=== PATIENT | female | born 1990 | race Caucasian/White ===

== ENCOUNTER 2019-03-08 21:05 | Inpatient (IN) | payer MEDICAID ==
[~2019-03-08] VITALS: Ht 175.3 cm; Wt 76.2 kg
[2019-03-08] MEDS ORDERED: NALBUPHINE 10 MG/ML AMP IVP PRN (22:15)
[2019-03-08] MEDS ORDERED: OXYTOCIN 20 UNITS in LACTATED RINGERS 1,000 ML IV SCH (22:15)
[2019-03-08] MEDS ORDERED: PROMETHAZINE 25 MG/ML VIAL IVP PRN (22:30)
[2019-03-08] MEDS ORDERED: BUPIVACAINE 0.125%/NS PREMIX 250 ML ONE (22:41)
[2019-03-08] MEDS: LACTATED RINGERS 1,000 ML IV SCH (22:44)
[2019-03-08] MEDS ORDERED: BUPIVACAINE 0.125%/NS PREMIX 250 ML EPI SCH (23:05)
[2019-03-08 23:19] LABS: BASOPHILS % (AUTO) 0.2 % (0.0-2.0); EOSINOPHILS % (AUTO) 0.2 % (0.0-4.0); HEMATOCRIT 41.1 % (36-48); HEMOGLOBIN 13.7 g/dL (12.0-16.0); LYMPHOCYTES # (AUTO) 1.5 K/uL (2.5-16.5); LYMPHOCYTES % (AUTO) 13.6 % (20.5-51.1); MEAN CORPUSCULAR HEMOGLOBIN 30 pg (27-31); MEAN CORPUSCULAR HGB CONC 33 g/dL (33-37); MEAN CORPUSCULAR VOLUME 89.1 fL (80-94); MONOCYTES # (AUTO) 0.4 K/uL (0.8-1.0); MONOCYTES % (AUTO) 3.7 % (1.7-9.3); NEUTROPHILS # (AUTO) 9.3 K/uL (1.8-7.7); NEUTROPHILS % (AUTO) 82.3 % (42.2-75.2); PLATELET COUNT (AUTO) 153 K/uL (140-450); RED BLOOD CELL COUNT(AUTO) 4.61 MIL/uL (4.20-5.40); RED CELL DISTRIBUTION WIDTH 13.5 % (11.6-13.7); WHITE BLOOD COUNT (AUTO) 11.3 K/uL (4.8-10.8)
[2019-03-08 23:23] LABS: APPEARANCE,URINE CLEAR (CLEAR); BILIRUBIN,URINE NEGATIVE (NEGATIVE); BLOOD, URINE TRACE-I (NEGATIVE); COLOR,URINE YELLOW (YELLOW); LEUKOCYTE ESTERASE ,URINE NEGATIVE (NEGATIVE); NITRITE, URINE NEGATIVE (NEGATIVE); UGLUCOSE NEGATIVE (NEGATIVE)
[2019-03-08 23:49] LABS: RBC,URINE 0-5 /HPF (0-5)
[2019-03-09] MEDS ORDERED: INFLUENZA VACCINE QUAD 0.5 ML SYR IMVAC PRN (00:15)
[2019-03-09 00:18] VITALS: BP 128/87
[2019-03-09] MEDS: LACTATED RINGERS 1,000 ML IV SCH (07:27)
[2019-03-09] MEDS ORDERED: OXYTOCIN 20 UNITS/LR PREMIX 1,000 ML IV ONE (07:35)
[2019-03-09] MEDS ORDERED: LIDOCAINE 1% 500 MG/50 ML VIAL ONE (12:23)
[2019-03-09] MEDS ORDERED: ROPIVACAINE 0.2%/NS PREMIX 100 ML EPI ONE (13:15)
[2019-03-09] MEDS ORDERED: GENTAMICIN PER PHARMACY MC PRN (13:30)
[2019-03-09] MEDS ORDERED: AMPICILLIN 2,000 MG VIAL ONE (13:52)
[2019-03-09] MEDS ORDERED: AMPICILLIN 2,000 MG in NACL 0.9% 100 ML IV SCH (14:00)
[2019-03-09] MEDS ORDERED: GENTAMICIN IV SCH (14:00)
[2019-03-09] MEDS ORDERED: CLINDAMYCIN 900 MG in DEXTROSE 5% 100 ML IV SCH (14:00)
[2019-03-09] MEDS ORDERED: DEXTROSE 5% IV SCH (14:00)
[2019-03-09] MEDS ORDERED: MEASLES, MUMPS, AND RUBELLA 1 VIAL SQVAC PRN (15:05)
[2019-03-09] MEDS ORDERED: BENZOCAINE/MENTHOL 20%-0.5% 60 GM CAN TP PRN (15:05)
[2019-03-09] MEDS ORDERED: METHYLERGONOVINE 0.2 MG TAB PO PRN (15:05)
[2019-03-09] MEDS ORDERED: METHYLERGONOVINE 0.2 MG/ML AMP IM PRN (15:05)
[2019-03-09] MEDS ORDERED: OXYTOCIN 10 UNITS/ML VIAL IM PRN (15:05)
[2019-03-09] MEDS: IBUPROFEN 800 MG TAB PO PRN ×2 (16:04→21:57)
[2019-03-10] MEDS: IBUPROFEN 800 MG TAB PO PRN (06:28)
[2019-03-10 07:08] LABS: HEMATOCRIT 35.4 % (36-48); HEMOGLOBIN 11.8 g/dL (12.0-16.0)
[2019-03-10] MEDS: oxyCODONE/APAP 5/325 MG 1 TAB TAB PO PRN ×2 (08:29→20:18)
[2019-03-11] MEDS: oxyCODONE/APAP 5/325 MG 1 TAB TAB PO PRN ×2 (10:18→14:34)
[2019-03-11 15:40] LABS: BILIRUBIN,URINE NEGATIVE (NEGATIVE); BLOOD, URINE 3+ (NEGATIVE); COLOR,URINE YELLOW (YELLOW); LEUKOCYTE ESTERASE ,URINE 1+ (NEGATIVE); NITRITE, URINE NEGATIVE (NEGATIVE); UGLUCOSE NEGATIVE (NEGATIVE)
[2019-03-11 15:41] LABS: APPEARANCE,URINE HAZY (CLEAR)
== END 2019-03-11 15:50 | disposition home or self-care (01) | DRG 560 ==
LOC: MLD 21:05 → OBSVTOIN 22:00 → MFCC 03-09 20:00
PROVIDERS: ADMIT Obstetrics & Gynecology; ATTEND Obstetrics & Gynecology
PROC: 10E0XZZ Delivery of Products of Conception, External Approach (ICD-10-PCS; principal; 2019-03-09)
PROC: 0HQ9XZZ Repair Perineum Skin, External Approach (ICD-10-PCS; 2019-03-09)
PROC: 10907ZC Drainage of Amniotic Fluid, Therapeutic from Products of Conception, Via Natural or Artificial Opening (ICD-10-PCS; 2019-03-09)
PROC: 3E0R3BZ Introduction of Anesthetic Agent into Spinal Canal, Percutaneous Approach (ICD-10-PCS; 2019-03-09)
PROC: 00HU33Z Insertion of Infusion Device into Spinal Canal, Percutaneous Approach (ICD-10-PCS; 2019-03-09)
PROC: 0UQMXZZ Repair Vulva, External Approach (ICD-10-PCS; 2019-03-09)
PROC: 3E0234Z Introduction of Serum, Toxoid and Vaccine into Muscle, Percutaneous Approach (ICD-10-PCS; 2019-03-09)
PROC: 3E0134Z Introduction of Serum, Toxoid and Vaccine into Subcutaneous Tissue, Percutaneous Approach (ICD-10-PCS; 2019-03-09)
DX: O41.1230 Chorioamnionitis, third trimester, not applicable or unspecified (principal); D62 Acute posthemorrhagic anemia; O70.0 First degree perineal laceration during delivery; Z23 Encounter for immunization; Z37.0 Single live birth; Z3A.38 38 weeks gestation of pregnancy
CPT/HCPCS: 36415; 51702; 59409; 81001; 85018; 85025; 86592; 86886; 86900; 86901; 87086; 87186; 90715; G0378; J0290; J1580; J2001; J2590; J2795; J3490; J7060; J7120

== ENCOUNTER 2021-05-14 05:52 | Day surgery (SDC) | payer MEDICAID ==
[~2021-05-14] VITALS: Ht 165.1 cm; Wt 67.6 kg
[2021-05-14 07:11] LABS: ALBUMIN 3.6 g/dL (3.4-5.0); ANION GAP 13.6 (8-16); CARBON DIOXIDE 24.6 mmol/L (21-32); CREATININE 0.6 mg/dL (0.6-1.3); POTASSIUM 3.2 mmol/L (3.5-5.1); TOTAL BILIRUBIN 0.3 mg/dL (0.0-1.0)
[2021-05-14 07:12] LABS: BASOPHILS % (AUTO) 0.2 % (0.0-2.0); EOSINOPHILS % (AUTO) 0.3 % (0.0-4.0); HEMATOCRIT 37.8 % (36-48); HEMOGLOBIN 12.9 g/dL (12.0-16.0); LYMPHOCYTES # (AUTO) 1.8 K/uL (2.5-16.5); LYMPHOCYTES % (AUTO) 25.9 % (20.5-51.1); MEAN CORPUSCULAR HEMOGLOBIN 29 pg (27-31); MEAN CORPUSCULAR HGB CONC 34 g/dL (33-37); MEAN CORPUSCULAR VOLUME 84.5 fL (80-94); MONOCYTES # (AUTO) 0.4 K/uL (0.8-1.0); MONOCYTES % (AUTO) 6.4 % (1.7-9.3); NEUTROPHILS # (AUTO) 4.6 K/uL (1.8-7.7); NEUTROPHILS % (AUTO) 67.2 % (42.2-75.2); PLATELET COUNT (AUTO) 188 K/uL (140-450); RED BLOOD CELL COUNT(AUTO) 4.47 MIL/uL (4.20-5.40); RED CELL DISTRIBUTION WIDTH 14.4 % (11.6-13.7); WHITE BLOOD COUNT (AUTO) 6.9 K/uL (4.8-10.8)
[2021-05-14] MEDS ORDERED: SEVOFLURANE 250 ML BTL INH ONE (07:25)
[2021-05-14] MEDS ORDERED: MIDAZOLAM 2 MG/2 ML VIAL ONE (07:25)
[2021-05-14] MEDS ORDERED: PROPOFOL 200 MG/20 ML VIAL IV ONE (07:26)
[2021-05-14] MEDS ORDERED: fentaNYL citrate 0.05 MG/ML VIAL ONE (07:26)
[2021-05-14] MEDS ORDERED: LIDOCAINE MPF 2% 100 MG/5 ML VIAL INJ ONE (07:39)
[2021-05-14] MEDS ORDERED: MISOPROSTOL 100 MCG TAB ONE (07:55)
[2021-05-14] MEDS ORDERED: DEXAMETHASONE 4 MG/ML VIAL ONE (07:56)
[2021-05-14] MEDS ORDERED: ONDANSETRON 4 MG/2 ML VIAL ONE (07:56)
[2021-05-14] MEDS ORDERED: ONDANSETRON 4 MG/2 ML VIAL IVP PRN (08:20)
[2021-05-14] MEDS ORDERED: LACTATED RINGERS 1,000 ML IV SCH (08:20)
[2021-05-14] MEDS ORDERED: MEPERIDINE 25 MG/ML SYR IVP PRN (08:20)
[2021-05-14] MEDS ORDERED: HYDROmorphone 1 MG/ML AMP IVP PRN (08:20)
== END 2021-05-14 09:53 | disposition home or self-care (01) ==
LOC: MDS 05:52 → MMU 05:53 → MDS 09:53
PROVIDERS: ATTEND Obstetrics & Gynecology
DX: O03.4 Incomplete spontaneous abortion without complication (principal); Z20.822 Contact with and (suspected) exposure to COVID-19
CPT/HCPCS: 36415; 59812; 80053; 85025; 86886; 86900; 86901; 87426; J1100; J2001; J2250; J2405; J2704; J3010; J7120

== ENCOUNTER 2021-08-07 11:11 | Emergency (ER) | payer MEDICAID ==
[~2021-08-07] VITALS: Ht 166.4 cm; Wt 70.8 kg
--- NOTE | 2021-08-07 11:35 | NUR ---
PT AMB TO ER BED 12
[2021-08-07] MEDS ORDERED: FLONAS NS ×2 (12:54→15:17)
[2021-08-07] MEDS ORDERED: IBUP-2213 PO ×2 (12:55→15:17)
--- NOTE | 2021-08-07 13:22 | NUR ---
COVID SWAB DONE.
[2021-08-07 13:24] VITALS: BP 138/66
--- NOTE | 2021-08-07 13:24 | NUR ---
Patient discharged with v/s stable. Written and verbal after care instructions given and explained. Patient alert, oriented and verbalized understanding of instructions. Ambulatory with steady gait. All questions addressed prior to discharge. ID band removed. Patient advised to follow up with PMD. Rx of FLONASE NASAL given. Patient educated on indication of medication including possible reaction and side effects. Opportunity to ask questions provided and answered.
== END 2021-08-07 13:24 | disposition home or self-care (01) ==
LOC: MED 11:11
DX: J06.9 Acute upper respiratory infection, unspecified (principal); Z20.822 Contact with and (suspected) exposure to COVID-19; Z79.899 Other long term (current) drug therapy
CPT/HCPCS: 99283

== ENCOUNTER 2022-01-08 11:33 | Emergency (ER) | payer MEDICAID ==
[~2022-01-08] VITALS: Ht 160 cm; Wt 65.8 kg
[~2022-01-08 11:33] MED LIST: FLONAS NS; IBUP-2213 PO
[2022-01-08 11:51] VITALS: BP 104/68
--- NOTE | 2022-01-08 12:03 | NUR ---
PATIENT AMBULATED TO BED 8
[2022-01-08] MEDS ORDERED: DEXAMETHASONE 4 MG/ML VIAL PO ONE (12:05)
--- NOTE | 2022-01-08 12:15 | NUR ---
SIN AT BEDSIDE FOR EVALUATION
--- NOTE | 2022-01-08 12:30 | NUR ---
pt swabbed for covid(jannette) and strep x2. specimen walked and handed to skilled labor [facility]
--- NOTE | 2022-01-08 12:32 | NUR ---
31YO FEMALE PT C/O SORE THROAT MILD 3/10 PAIN X3DAYS. PRESENTS W/O COUGH . MILD REDDENED SWELLING IN THROAT. DENIES TAKING MEDICATION , N/V/D, FEVER, CHILLS, SOB OR CHEST PAIN. PT AAOX4, RESPIRATIONS EVEN AND UNLABORED. HX: DENIES NKA
[2022-01-08] MEDS ORDERED: PROM118S5 PO (13:13)
[2022-01-08] MEDS ORDERED: BENZ-300 PO (13:13)
[2022-01-08] MEDS ORDERED: PENICILLIN V POTASSIUM 250 MG TAB PO ONE (13:40)
[2022-01-08] MEDS ORDERED: AMOX500C25 PO (13:44)
[2022-01-08] MEDS ORDERED: PENICILLIN V POTASSIUM 250 MG TAB ONE (13:46)
[2022-01-08] MEDS ORDERED: PENI500T20 PO (13:47)
[2022-01-08 13:48] VITALS: BP 104/68
--- NOTE | 2022-01-08 13:48 | NUR ---
Patient discharged with v/s stable. Written and verbal after care instructions FOR PHARYNGITIS given and explained. Patient alert, oriented and verbalized understanding of instructions. Ambulatory with steady gait. All questions addressed prior to discharge. ID band removed. Patient advised to follow up with PMD. Rx of BENZOCAINE, PENICILLIN AND PROMETHORPHAN given. Opportunity to ask questions provided and answered.
--- NOTE | 2022-01-08 14:26 | NUR ---
The patient's care was reviewed and supervised by ED Agency Nurse 9, RN, RN.
== END 2022-01-08 13:48 | disposition home or self-care (01) ==
LOC: MED 11:33
DX: J02.9 Acute pharyngitis, unspecified (principal); Z20.822 Contact with and (suspected) exposure to COVID-19; B96.89 Other specified bacterial agents as the cause of diseases classified elsewhere; Z79.899 Other long term (current) drug therapy
CPT/HCPCS: 87081; 87426; 99283; J1100

== ENCOUNTER 2022-06-24 18:07 | Emergency (ER) | payer MEDICAID ==
[~2022-06-24] VITALS: Ht 165.1 cm; Wt 69.9 kg
[~2022-06-24 18:07] MED LIST changes: +BENZ-300 PO; +PENI500T20 PO; +PROM118S5 PO
[2022-06-24 18:30] VITALS: BP 115/65
[2022-06-24] MEDS ORDERED: NACL 0.9% 1,000 ML IV ONE (19:05)
[2022-06-24 19:34] LABS: BASOPHILS % (AUTO) 0.3 % (0.0-2.0); EOSINOPHILS % (AUTO) 0.3 % (0.0-4.0); HEMOGLOBIN 13.3 g/dL (12.0-16.0); LYMPHOCYTES # (AUTO) 1.7 K/uL (2.5-16.5); LYMPHOCYTES % (AUTO) 21.1 % (20.5-51.1); MEAN CORPUSCULAR HEMOGLOBIN 29 pg (27-31); MEAN CORPUSCULAR HGB CONC 34 g/dL (33-37); MEAN CORPUSCULAR VOLUME 84.2 fL (80-94); MONOCYTES # (AUTO) 0.5 K/uL (0.8-1.0); MONOCYTES % (AUTO) 6.3 % (1.7-9.3); NEUTROPHILS # (AUTO) 5.8 K/uL (1.8-7.7); PLATELET COUNT (AUTO) 202 K/uL (140-450); RED BLOOD CELL COUNT(AUTO) 4.64 MIL/uL (4.20-5.40); RED CELL DISTRIBUTION WIDTH 13.5 % (11.6-13.7)
[2022-06-24 19:52] LABS: BILIRUBIN,URINE NEGATIVE (NEGATIVE); BLOOD, URINE NEGATIVE (NEGATIVE); COLOR,URINE YELLOW (YELLOW); LEUKOCYTE ESTERASE ,URINE 1+ (NEGATIVE); NITRITE, URINE NEGATIVE (NEGATIVE); UGLUCOSE NEGATIVE (NEGATIVE)
[2022-06-24 20:07] LABS: ANION GAP 11.5 (8-16); CARBON DIOXIDE 27.9 mmol/L (21-32); CREATININE 0.7 mg/dL (0.6-1.3); POTASSIUM 3.4 mmol/L (3.5-5.1); TOTAL BILIRUBIN 0.2 mg/dL (0.0-1.0)
[2022-06-24 20:22] LABS: APPEARANCE,URINE HAZY (CLEAR)
[2022-06-24 20:51] LABS: RBC,URINE NONE SEEN /HPF (0-5)
[2022-06-24] MEDS ORDERED: PREN-371 PO (21:03)
[2022-06-24] MEDS ORDERED: CEPH-588 PO (21:03)
[2022-06-24 21:39] VITALS: BP 115/65
--- NOTE | 2022-06-24 21:39 | NUR ---
Patient discharged with v/s stable. Written and verbal after care instructions given and explained. Patient alert, oriented and verbalized understanding of instructions. Ambulatory with steady gait. All questions addressed prior to discharge. ID band removed. Patient advised to follow up with PMD. Rx of KEFELX, PRENATALS given. Patient educated on indication of medication including possible reaction and side effects. Opportunity to ask questions provided and answered.
== END 2022-06-24 21:39 | disposition home or self-care (01) ==
LOC: MED 18:07
DX: O23.11 Infections of bladder in pregnancy, first trimester (principal); O26.891 Other specified pregnancy related conditions, first trimester; Z3A.01 Less than 8 weeks gestation of pregnancy
CPT/HCPCS: 36415; 76817; 80053; 81001; 81025; 84702; 85025; 86900; 86901; 87086; 99284; Q0092

== ENCOUNTER 2022-06-27 12:41 | Emergency (ER) | payer MEDICAID ==
[~2022-06-27] VITALS: Ht 157.5 cm; Wt 69.9 kg
[~2022-06-27 12:41] MED LIST changes: +CEPH-588 PO; +PREN-371 PO
[2022-06-27 12:56] VITALS: BP 116/66
--- NOTE | 2022-06-27 14:28 | NUR ---
32 Y/O FEMALE BIB SELF C/O COLD S/S, SORE THROAT, HEADACHE, RUNNY NOSE, SUBJECTIVE FEVERS, NAUSEA, VOMITING, [id number], WAS SEEN IN THE ED FOR UTI TAKING KEFLEX, HR 132 AT THIS TIME, AFEBRILE IN TRIAGE. 6 WEEKS NKA PMH: DENIES
[2022-06-27] MEDS ORDERED: ACET-2619 PO (14:31)
[2022-06-27] MEDS ORDERED: PREN1SGL93 PO (14:31)
[2022-06-27] MEDS ORDERED: [UNRECOGNIZED DRUG - CODE] MM (14:33)
[2022-06-27] MEDS ORDERED: [UNRECOGNIZED DRUG - CODE] PO (14:33)
[2022-06-27 15:06] VITALS: BP 127/86
--- NOTE | 2022-06-27 15:06 | NUR ---
The patient's care was reviewed and supervised by Sherman Dubose RN.
--- NOTE | 2022-06-27 15:06 | NUR ---
Patient discharged with v/s stable. Written and verbal after care instructions FOR VIRAL ILLNESS given and explained. Patient alert, oriented and verbalized understanding of instructions. Ambulatory with steady gait. All questions addressed prior to discharge. ID band removed. Patient advised to follow up with PMD. Rx of TYLENOL, LORATADINE , COUGH DROPS AND PRENATALS given. Opportunity to ask questions provided and answered.
== END 2022-06-27 15:06 | disposition home or self-care (01) ==
LOC: MED 12:41
DX: O98.511 Other viral diseases complicating pregnancy, first trimester (principal); B34.9 Viral infection, unspecified; Z20.822 Contact with and (suspected) exposure to COVID-19; Z3A.01 Less than 8 weeks gestation of pregnancy; Z79.899 Other long term (current) drug therapy; Z79.2 Long term (current) use of antibiotics; Z79.1 Long term (current) use of non-steroidal anti-inflammatories (NSAID)
CPT/HCPCS: 99283

== ENCOUNTER 2022-08-20 12:25 | Emergency (ER) | payer MEDICAID ==
[~2022-08-20] VITALS: Ht 167.6 cm; Wt 69.4 kg
[~2022-08-20 12:25] MED LIST changes: +ACET-2619 PO; +PREN1SGL93 PO; +[UNRECOGNIZED DRUG - CODE] MM; +[UNRECOGNIZED DRUG - CODE] PO
[2022-08-20 12:30] VITALS: BP 122/73
[2022-08-20 13:45] LABS: BASOPHILS % (AUTO) 0.2 % (0.0-2.0); EOSINOPHILS % (AUTO) 0.2 % (0.0-4.0); HEMATOCRIT 36.5 % (36-48); HEMOGLOBIN 12.6 g/dL (12.0-16.0); LYMPHOCYTES # (AUTO) 1.2 K/uL (2.5-16.5); LYMPHOCYTES % (AUTO) 16.8 % (20.5-51.1); MEAN CORPUSCULAR HEMOGLOBIN 29 pg (27-31); MEAN CORPUSCULAR HGB CONC 35 g/dL (33-37); MEAN CORPUSCULAR VOLUME 84.3 fL (80-94); MONOCYTES # (AUTO) 0.4 K/uL (0.8-1.0); MONOCYTES % (AUTO) 4.9 % (1.7-9.3); NEUTROPHILS # (AUTO) 5.6 K/uL (1.8-7.7); NEUTROPHILS % (AUTO) 77.9 % (42.2-75.2); PLATELET COUNT (AUTO) 189 K/uL (140-450); RED BLOOD CELL COUNT(AUTO) 4.33 MIL/uL (4.20-5.40); RED CELL DISTRIBUTION WIDTH 14.8 % (11.6-13.7); WHITE BLOOD COUNT (AUTO) 7.2 K/uL (4.8-10.8)
[2022-08-20 13:48] LABS: APPEARANCE,URINE CLEAR (CLEAR); BILIRUBIN,URINE NEGATIVE (NEGATIVE); BLOOD, URINE NEGATIVE (NEGATIVE); COLOR,URINE YELLOW (YELLOW); LEUKOCYTE ESTERASE ,URINE 2+ (NEGATIVE); NITRITE, URINE NEGATIVE (NEGATIVE); UGLUCOSE NEGATIVE (NEGATIVE)
[2022-08-20 13:58] LABS: RBC,URINE 0-5 /HPF (0-5)
[2022-08-20] MEDS ORDERED: CEPH-588 PO (16:05)
[2022-08-20 16:48] VITALS: BP 105/62
--- NOTE | 2022-08-20 16:48 | NUR ---
Patient discharged with v/s stable. Written and verbal after care instructions given. Patient alert, oriented and verbalized understanding of instructions. Ambulatory with steady gait. All questions addressed prior to discharge. ID band removed. Patient advised to follow up with PMD. Rx of KEFLEX given. Opportunity to ask questions provided and answered. COPY OF LABWORK AND ULTRASOUND GIVEN TO PATIENT.
--- NOTE | 2022-08-20 16:49 | NUR ---
The patient's care was reviewed and supervised by Irma Gunn, RN, RN.
== END 2022-08-20 16:48 | disposition home or self-care (01) ==
LOC: MED 12:25
DX: O23.42 Unspecified infection of urinary tract in pregnancy, second trimester (principal); N39.0 Urinary tract infection, site not specified; Z3A.14 14 weeks gestation of pregnancy
CPT/HCPCS: 36415; 76805; 81001; 81025; 84702; 85025; 86900; 86901; 87086; 99284; Q0092

== ENCOUNTER 2022-08-29 19:48 | Emergency (ER) | payer MEDICAID ==
[~2022-08-29] VITALS: Ht 167.6 cm; Wt 69.9 kg
[2022-08-29 20:03] VITALS: BP 124/71
--- NOTE | 2022-08-29 20:03 | NUR ---
PT OFFLOADED TO [facility]
[2022-08-29 21:30] LABS: BASOPHILS % (AUTO) 0.1 % (0.0-2.0); EOSINOPHILS % (AUTO) 0.6 % (0.0-4.0); HEMATOCRIT 35.2 % (36-48); HEMOGLOBIN 12.3 g/dL (12.0-16.0); LYMPHOCYTES # (AUTO) 1.5 K/uL (2.5-16.5); LYMPHOCYTES % (AUTO) 17.4 % (20.5-51.1); MEAN CORPUSCULAR HEMOGLOBIN 30 pg (27-31); MEAN CORPUSCULAR HGB CONC 35 g/dL (33-37); MEAN CORPUSCULAR VOLUME 84.3 fL (80-94); MONOCYTES # (AUTO) 0.4 K/uL (0.8-1.0); MONOCYTES % (AUTO) 5.3 % (1.7-9.3); NEUTROPHILS # (AUTO) 6.5 K/uL (1.8-7.7); NEUTROPHILS % (AUTO) 76.6 % (42.2-75.2); PLATELET COUNT (AUTO) 179 K/uL (140-450); RED BLOOD CELL COUNT(AUTO) 4.17 MIL/uL (4.20-5.40); RED CELL DISTRIBUTION WIDTH 14.3 % (11.6-13.7); WHITE BLOOD COUNT (AUTO) 8.5 K/uL (4.8-10.8)
[2022-08-29 21:42] LABS: ANION GAP 9.6 (8-16); CARBON DIOXIDE 27.9 mmol/L (21-32); CREATININE 0.5 mg/dL (0.6-1.3); POTASSIUM 3.5 mmol/L (3.5-5.1)
--- NOTE | 2022-08-29 23:38 | NUR ---
PT CONSENT FOR RHOGAM INJECTION OBTAINED VIA [facility] [facility], #[id number].
--- NOTE | 2022-08-29 23:55 | NUR ---
RHOGRAM GIVEN IM TO LT DELTOID. NO ADVERSE REACTION NOTICED.
[2022-08-30 00:04] LABS: APPEARANCE,URINE CLEAR (CLEAR); BILIRUBIN,URINE NEGATIVE (NEGATIVE); BLOOD, URINE 3+ (NEGATIVE); COLOR,URINE ORANGE (YELLOW); LEUKOCYTE ESTERASE ,URINE TRACE (NEGATIVE); NITRITE, URINE NEGATIVE (NEGATIVE); UGLUCOSE NEGATIVE (NEGATIVE)
--- NOTE | 2022-08-30 00:10 | NUR ---
Patient discharged with v/s stable. Written and verbal after care instructions given and explained. Patient verbalized understanding. Ambulatory with steady gait. All questions addressed prior to discharge. Advised to follow up with PMD.
[2022-08-30 00:14] LABS: RBC,URINE >20 (MANY) /HPF (0-5); WBC,URINE >25 (MANY) /HPF (0-5)
[2022-08-30] MEDS ORDERED: CEPH-588 PO (05:51)
== END 2022-08-30 00:10 | disposition home or self-care (01) ==
LOC: MED 19:48
DX: O20.0 Threatened abortion (principal); O23.42 Unspecified infection of urinary tract in pregnancy, second trimester; Z3A.15 15 weeks gestation of pregnancy; Z79.899 Other long term (current) drug therapy; Z79.2 Long term (current) use of antibiotics; Z79.1 Long term (current) use of non-steroidal anti-inflammatories (NSAID)
CPT/HCPCS: 36415; 76805; 80048; 81001; 81025; 85025; 86886; 86900; 86901; 87086; 96372; 99285; J2790; 99284

== ENCOUNTER 2022-10-19 05:05 | Observation (INO) | payer MEDICAID ==
[~2022-10-19] VITALS: Ht 167.6 cm; Wt 77.1 kg
[2022-10-19 05:57] VITALS: BP 131/67
[2022-10-19 07:11] LABS: APPEARANCE,URINE CLEAR (CLEAR); BILIRUBIN,URINE NEGATIVE (NEGATIVE); BLOOD, URINE NEGATIVE (NEGATIVE); COLOR,URINE YELLOW (YELLOW); LEUKOCYTE ESTERASE ,URINE 2+ (NEGATIVE); NITRITE, URINE NEGATIVE (NEGATIVE); UGLUCOSE NEGATIVE (NEGATIVE)
[2022-10-19 07:23] LABS: RBC,URINE 0-5 /HPF (0-5)
== END 2022-10-19 08:05 | disposition home or self-care (01) ==
LOC: MLD 05:05
PROVIDERS: ADMIT Obstetrics & Gynecology; ATTEND Obstetrics & Gynecology
DX: O26.892 Other specified pregnancy related conditions, second trimester (principal); R10.30 Lower abdominal pain, unspecified; Z20.822 Contact with and (suspected) exposure to COVID-19; Z3A.22 22 weeks gestation of pregnancy; Z87.440 Personal history of urinary (tract) infections
CPT/HCPCS: 59025; 81001; 87086; 87426; G0378

== ENCOUNTER 2023-02-09 23:34 | Inpatient (IN) | payer MEDICAID ==
[~2023-02-09] VITALS: Ht 165 cm; Wt 80.7 kg
[~2023-02-09 23:34] MED LIST changes: -ACET-2619 PO; -BENZ-300 PO; -CEPH-588 PO; -FLONAS NS; -IBUP-2213 PO; -PENI500T20 PO; -PROM118S5 PO; -[UNRECOGNIZED DRUG - CODE] MM; -[UNRECOGNIZED DRUG - CODE] PO
[2023-02-10] MEDS ORDERED: ONDANSETRON 4 MG/2 ML VIAL IVP PRN (00:55)
[2023-02-10] MEDS ORDERED: MORPHINE SULFATE 10 MG/ML VIAL IVP PRN (00:55)
[2023-02-10] MEDS ORDERED: OXYTOCIN 20 UNITS in LACTATED RINGERS 1,000 ML IV SCH (00:55)
[2023-02-10 01:31] LABS: APPEARANCE,URINE CLEAR (CLEAR); BILIRUBIN,URINE NEGATIVE (NEGATIVE); BLOOD, URINE NEGATIVE (NEGATIVE); COLOR,URINE YELLOW (YELLOW); LEUKOCYTE ESTERASE ,URINE 1+ (NEGATIVE); NITRITE, URINE NEGATIVE (NEGATIVE); PROTEIN,URINE NEGATIVE (NEGATIVE); UGLUCOSE NEGATIVE (NEGATIVE); UROBILINOGEN,URINE 0.2 EU/dL (0.2 - 1)
[2023-02-10 01:34] LABS: BASOPHILS % (AUTO) 0.6 % (0.0-2.0); EOSINOPHILS % (AUTO) 0.3 % (0.0-4.0); HEMATOCRIT 38.7 % (36-48); HEMOGLOBIN 13.5 g/dL (12.0-16.0); LYMPHOCYTES # (AUTO) 1.4 K/uL (2.5-16.5); LYMPHOCYTES % (AUTO) 17.1 % (20.5-51.1); MEAN CORPUSCULAR HEMOGLOBIN 31 pg (27-31); MEAN CORPUSCULAR HGB CONC 35 g/dL (33-37); MEAN CORPUSCULAR VOLUME 88.5 fL (80-94); MONOCYTES # (AUTO) 0.5 K/uL (0.8-1.0); MONOCYTES % (AUTO) 5.7 % (1.7-9.3); NEUTROPHILS # (AUTO) 6.4 K/uL (1.8-7.7); NEUTROPHILS % (AUTO) 76.3 % (42.2-75.2); PLATELET COUNT (AUTO) 159 K/uL (140-450); RED BLOOD CELL COUNT(AUTO) 4.37 MIL/uL (4.20-5.40); RED CELL DISTRIBUTION WIDTH 13.8 % (11.6-13.7); WHITE BLOOD COUNT (AUTO) 8.4 K/uL (4.8-10.8)
[2023-02-10 01:41] VITALS: BP 123/75; PULSE 74; RESP 17; TEMP 97.9
[2023-02-10 01:44] LABS: BACTERIA,URINE >30 (MANY) /HPF (None Seen); MUCUS,URINE 1+ /LPF (None Seen); RBC,URINE 0-5 /HPF (0-5); WBC,URINE 20-60 /HPF (0-5)
[2023-02-10 01:45] LABS: INR 0.87 (0.8-1.2); PARTIAL THROMBOPLASTIN TIME 25.9 secs (22-35.6); PROTHROMBIN TIME 9.2 secs (10.8-13.4)
[2023-02-10 01:46] LABS: ALBUMIN 2.3 g/dL (3.4-5.0); ANION GAP 12.4 (8-16); CALCIUM 8.6 mg/dL (8.5-10.1); CARBON DIOXIDE 23.5 mmol/L (21-32); CREATININE 0.7 mg/dL (0.6-1.3); POTASSIUM 3.9 mmol/L (3.5-5.1); TOTAL BILIRUBIN 0.3 mg/dL (0.0-1.0); TOTAL PROTEIN, SERUM 6.2 g/dL (6.4-8.2)
[2023-02-10 01:51] LABS: HIV RAPID SCREEN NON-REACTIVE (NON REACTIV)
[2023-02-10] MEDS: LACTATED RINGERS 1,000 ML IV SCH ×4 (02:07→11:14)
[2023-02-10] MEDS ORDERED: MISOPROSTOL 200 MCG TAB VG SCH ×4 (02:20→02:50)
[2023-02-10] MEDS ORDERED: MISOPROSTOL 25 MCG TAB VG SCH (02:55)
[2023-02-10] MEDS ORDERED: ROPIVACAINE 0.2%/NS PREMIX 200 ML EPI ONE (08:05)
[2023-02-10] MEDS ORDERED: OXYTOCIN 20 UNITS/LR PREMIX 1,000 ML IV ONE (10:38)
[2023-02-10] MEDS ORDERED: METHYLERGONOVINE 0.2 MG/ML AMP ONE (14:32)
[2023-02-10] MEDS ORDERED: METHYLERGONOVINE 0.2 MG/ML AMP IM PRN ×2 (14:35→16:45)
[2023-02-10] MEDS ORDERED: CARBOPROST 250 MCG/ML AMP IM PRN (14:35)
[2023-02-10] MEDS ORDERED: BENZOCAINE/MENTHOL 20%-0.5% 60 GM CAN TP PRN (16:45)
[2023-02-10] MEDS ORDERED: METHYLERGONOVINE 0.2 MG TAB PO PRN (16:45)
[2023-02-10] MEDS ORDERED: MEASLES, MUMPS, AND RUBELLA 1 VIAL SQVAC ONE (16:45)
[2023-02-10] MEDS ORDERED: OXYTOCIN 10 UNITS/ML VIAL IM PRN (16:45)
[2023-02-10] MEDS ORDERED: IBUPROFEN 800 MG TAB PO PRN (16:45)
[2023-02-10] MEDS ORDERED: MEASLES, MUMPS, AND RUBELLA 1 VIAL SQVAC PRN (16:50)
[2023-02-10] MEDS ORDERED: IBUPROFEN 600 MG TAB PO PRN (18:55)
[2023-02-11 06:33] LABS: HEMATOCRIT 34.5 % (36-48); HEMOGLOBIN 11.9 g/dL (12.0-16.0)
[2023-02-11 11:20] LABS: RAPID PLASMA REAGIN NON-REACTIVE (Non Reactiv)
== END 2023-02-11 15:10 | disposition home or self-care (01) | DRG 560 ==
LOC: MLD 23:34 → MFCC 02-10 16:25
PROVIDERS: ADMIT Obstetrics & Gynecology; ATTEND Obstetrics & Gynecology
PROC: 10E0XZZ Delivery of Products of Conception, External Approach (ICD-10-PCS; principal; 2023-02-10)
PROC: 0HQ9XZZ Repair Perineum Skin, External Approach (ICD-10-PCS; 2023-02-10)
DX: O70.0 First degree perineal laceration during delivery (principal); Z37.0 Single live birth; Z20.822 Contact with and (suspected) exposure to COVID-19; Z3A.39 39 weeks gestation of pregnancy
CPT/HCPCS: 36415; 51702; 59200; 59409; 80053; 81001; 85018; 85025; 85610; 85730; 86592; 86870; 86886; 86900; 86901; 87086; 90715; J2210; J2405; J2590; J2795; J7120

== ENCOUNTER 2023-11-02 10:23 | Emergency (ER) | payer MEDICAID, OTHER ==
[~2023-11-02] VITALS: Ht 170.2 cm; Wt 66.7 kg
[2023-11-02 10:49] VITALS: BP_SYST 136; BP_SYST 206; BP_DIAS 113; BP_DIAS 75; PULSE 88; RESP 18; TEMP 97.3; O2SAT 95; O2SAT 99
[2023-11-02 11:34] LABS: APPEARANCE,URINE CLEAR (CLEAR); BILIRUBIN,URINE NEGATIVE (NEGATIVE); BLOOD, URINE 1+ (NEGATIVE); COLOR,URINE YELLOW (YELLOW); LEUKOCYTE ESTERASE ,URINE NEGATIVE (NEGATIVE); NITRITE, URINE NEGATIVE (NEGATIVE); PROTEIN,URINE NEGATIVE (NEGATIVE); UGLUCOSE NEGATIVE (NEGATIVE); UROBILINOGEN,URINE 0.2 EU/dL (0.2 - 1)
[2023-11-02 11:49] LABS: RBC,URINE 11-20 (MOD) /HPF (0-5); WBC,URINE 0-5 /HPF (0-5)
[2023-11-02 11:50] LABS: BACTERIA,URINE 1+ /HPF (None Seen); SQUAMOUS EPITHELIAL CELL,UR 0-3 (FEW) /LPF (0-3 (FEW))
[2023-11-02] MEDS ORDERED: SUCR1TAB56 PO (11:50)
[2023-11-02] MEDS ORDERED: OMEP20EC11 PO (11:50)
[2023-11-02 12:07] VITALS: BP 112/72; PULSE 69; RESP 18; TEMP 97.7; O2SAT 99
== END 2023-11-02 12:07 | disposition home or self-care (01) ==
LOC: MED 10:23
DX: K27.9 Peptic ulcer, site unspecified, unspecified as acute or chronic, without hemorrhage or perforation (principal); Z79.899 Other long term (current) drug therapy
CPT/HCPCS: 81001; 81025; 99283